=== PATIENT | male | born 1955 | race Caucasian/White ===

== ENCOUNTER 2023-10-29 15:54 | Inpatient (IN) | payer OTHER ==
[2023-10-29 16:55] LABS: HEMATOCRIT 44.1 % (35.4-49); HEMOGLOBIN 15.4 G/dL (11.7-16.9); MCH 30.6 pg (25.7-33.7); MEAN CELL VOLUME 87.3 fl (80-96); MEAN PLT VOLUME 8.8 fl (7.5-11.1); PLATELET COUNT 189.6 10^3/uL (134-434); RBC 5.05 10^6/uL (4.00-5.60); RDW 13.9 % (11.9-15.9); WHITE BLOOD COUNT 10.2 10^3/uL (4.0-10.8)
[2023-10-29] MEDS ORDERED: ACETAMINOPHEN 325 MG TABLET (FP) ONE (16:56)
[2023-10-29] MEDS: ACETAMINOPHEN 325 MG TABLET (FP) PO ONE (17:00)
[2023-10-29 17:16] LABS: ALBUMIN 4.2 g/dl (3.4-5.0); BILIRUBIN,TOTAL 1.4 mg/dl (0.2-1); CALCIUM 9.1 mg/dl (8.5-10.1); CREATININE 0.8 mg/dl (0.6-1.3); POTASSIUM 3.5 mmol/L (3.5-5.1)
[2023-10-29 17:20] LABS: PLATELET ESTIMATE ADEQUATE
[2023-10-29] MEDS: SODIUM CHLORIDE 0.9% 500 ML INFUS.BAG IV ONE (18:02)
[2023-10-29] MEDS ORDERED: cefTRIAXone SODIUM 1 GM VIAL ONE (18:04)
[2023-10-29] MEDS: CEFTRIAXONE 1,000 MG in DEXTROSE 5%-WATER - 50 ML IVPB ONE (18:11)
[2023-10-29] MEDS: DEXTROSE 5%-0.45% SALINE 1,000 ML IV SCH (20:05)
[2023-10-30] MEDS ORDERED: ACETAMINOPHEN INJECTION 100 ML IVPB ONE (00:14)
[2023-10-30] MEDS: ACETAMINOPHEN 1000 MG/100 ML BAG IVPB ONE (00:23)
[2023-10-30] MEDS ORDERED: ACETAMINOPHEN 1000 MG/100 ML BAG IVPB PRN (03:45)
[2023-10-30] MEDS: INSULIN ASPART SLIDING SCALE (NOVOLOG) 1 VIAL SQ SCH ×2 (06:32→17:39)
[2023-10-30 08:28] LABS: HEMATOCRIT 39.6 % (35.4-49); HEMOGLOBIN 13.9 GM/dL (11.7-16.9); MCH 30.1 pg (25.7-33.7); MCHC 35.2 g/dl (32.0-35.9); MEAN CELL VOLUME 85.6 fl (80-96); MEAN PLT VOLUME 8.9 fl (7.5-11.1); PLATELET COUNT 210 10^3/uL (134-434); RBC 4.63 M/mm3 (4.00-5.60); WHITE BLOOD COUNT 7.4 K/mm3 (4.0-10.0)
[2023-10-30 08:54] LABS: URINE APPEARANCE CLEAR; URINE BILIRUBIN NEGATIVE (NEGATIVE); URINE COLOR YELLOW; URINE GLUCOSE (UA) NEGATIVE (NEGATIVE); URINE KETONE NEGATIVE (NEGATIVE); URINE LEUK ESTERASE NEGATIVE (NEGATIVE); URINE NITRITE NEGATIVE (NEGATIVE); URINE PROTEIN NEGATIVE (NEGATIVE)
[2023-10-30 09:04] LABS: ALBUMIN 3.2 g/dl (3.4-5.0); CALCIUM 8.2 mg/dL (8.5-10.1); MAGNESIUM 2.1 mg/dL (1.8-2.4)
[2023-10-30 09:06] LABS: PHOSPHOROUS 3.4 mg/dL (2.5-4.9)
[2023-10-30 09:07] LABS: BLOOD UREA NITROGEN 11.3 mg/dL (7-18)
[2023-10-30 09:08] LABS: BILIRUBIN,TOTAL 1.2 mg/dL (0.2-1); CREATININE 0.6 mg/dL (0.55-1.3); TOT PROT 6.3 g/dl (6.4-8.2)
[2023-10-30 09:15] LABS: POTASSIUM 3.3 mmol/L (3.5-5.1)
[2023-10-30] MEDS ORDERED: BUPIVACAINE HCL/PF 0.25% (2.5MG/ML) 10 ML VIAL ONE (09:23)
[2023-10-30] MEDS: amLODIPine BESYLATE 5 MG TABLET (FP) PO SCH (09:58)
[2023-10-30] MEDS: CEFTRIAXONE 1 GM in DEXTROSE 5%-WATER - 50 ML IVPB SCH (09:58)
[2023-10-30] MEDS: ATENOLOL 50 MG TABLET (FP) PO SCH (09:58)
[2023-10-30] MEDS ORDERED: BUPIVACAINE HCL/PF 0.5% (5MG/ML) 10 ML VIAL ONE (10:00)
[2023-10-30] MEDS ORDERED: PROPOFOL 20 ML ONE (10:12)
[2023-10-30] MEDS ORDERED: ROCURONIUM BROMIDE 50 MG/5 ML SYRINGE ONE (10:13)
[2023-10-30] MEDS ORDERED: MIDAZOLAM HCL 2 MG/2 ML SINGLE DOSE VIAL ONE (10:13)
[2023-10-30] MEDS: LIDOCAINE HCL 1% PRESERVATIVE FREE - 30ML VIAL IJ ONE ×2 (10:55)
[2023-10-30] MEDS: BUPIVACAINE HCL/PF 0.5% (5MG/ML) 10 ML VIAL IJ ONE ×2 (10:55)
[2023-10-30] MEDS ORDERED: NEOSTIGMINE METHYLSULFATE 0.5 MG/1 ML - 10 ML MDV ONE (11:29)
[2023-10-30] MEDS ORDERED: ONDANSETRON 4 MG/2 ML VIAL IVPUSH PRN (12:12)
[2023-10-30] MEDS ORDERED: LACTATED RINGERS SOLUTION 1,000 ML IV SCH (12:15)
[2023-10-30] MEDS: ACETAMINOPHEN INJECTION 100 ML IVPB ONE (12:25)
[2023-10-30] MEDS: ACETAMINOPHEN 1000 MG/100 ML BAG IVPB PRN (12:25)
[2023-10-30] MEDS: DEXTROSE 5%-0.45% SALINE 1,000 ML IV SCH (15:05)
[2023-10-30] MEDS: oxyCODONE HCL 5 MG TABLET PO PRN ×2 (15:05→22:05)
[2023-10-30] MEDS: ACETAMINOPHEN 500 MG TABLET (FP) PO SCH (17:38)
[2023-10-30] MEDS ORDERED: ATORVASTATIN CA 40 MG TABLET (FP) PO SCH (22:00)
[2023-10-30] MEDS: ATORVASTATIN CA 40 MG TABLET (FP) PO SCH (22:04)
[2023-10-31 08:26] VITALS: RESP 18
[2023-10-31] MEDS: ATENOLOL 50 MG TABLET (FP) PO SCH (09:59)
[2023-10-31] MEDS: amLODIPine BESYLATE 5 MG TABLET (FP) PO SCH (09:59)
[2023-10-31 13:31] VITALS: BP 144/86; PULSE 64; TEMP 98.3
== END 2023-10-31 17:01 | disposition home or self-care (01) | DRG 419 ==
LOC: FER 15:54 → J8W 10-30 01:30
PROVIDERS: ADMIT Surgery; ATTEND Nurse Practitioner Family
PROC: 0FT44ZZ Resection of Gallbladder, Percutaneous Endoscopic Approach (ICD-10-PCS; principal; 2023-10-30 10:00)
DX: K81.0 Acute cholecystitis (principal); I10 Essential (primary) hypertension; E78.5 Hyperlipidemia, unspecified; I25.10 Atherosclerotic heart disease of native coronary artery without angina pectoris; Z95.5 Presence of coronary angioplasty implant and graft
CPT/HCPCS: 0241U-QW; 36415; 76705-TC; 80053; 81003; 82962; 83690; 83735; 84100; 85027; 93005; 94010; 94760; 99285-25; J0131